=== PATIENT | female | born 1970 | race Caucasian/White ===

== ENCOUNTER 2018-06-05 20:58 | Emergency (ER) | payer BC ==
[~2018-06-05] VITALS: Ht 165.1 cm; Wt 122.5 kg
[2018-06-05] MEDS ORDERED: NORCO 5-325 TA1 EACH PO (23:16)
[2018-06-05 23:33] VITALS: BP 126/61
== END 2018-06-05 23:43 | disposition home or self-care (01) ==
LOC: ER 20:58
DX: S42.402A Unspecified fracture of lower end of left humerus, initial encounter for closed fracture (principal); S09.90XA Unspecified injury of head, initial encounter; S16.1XXA Strain of muscle, fascia and tendon at neck level, initial encounter; S20.212A Contusion of left front wall of thorax, initial encounter; I10 Essential (primary) hypertension; E03.9 Hypothyroidism, unspecified; F41.9 Anxiety disorder, unspecified; W01.198A Fall on same level from slipping, tripping and stumbling with subsequent striking against other object, initial encounter; Y92.89 Other specified places as the place of occurrence of the external cause; Y93.89 Activity, other specified; Y99.8 Other external cause status